=== PATIENT | male | born 1975 | race Caucasian/White ===

== ENCOUNTER 2017-11-11 09:35 | Emergency (ER) | payer OTHER, SELFPAY ==
[2017-11-11 09:37] VITALS: BP 159/93; PULSE 86; RESP 20; TEMP 36.1; O2SAT 99; BMI 25.4
--- NOTE | 2017-11-11 09:38 | CT_ITS ---
CT abdomen pelvis wo con CLINICAL INDICATION: Right flank pain ITS.REASON: R flank pain ORDERING PHYSICIAN: Alexandr Brandon MD PATIENT AGE: 41 years COMPARISON: None TECHNIQUE: Axial images obtained with sagittal and coronal reformats. PROCEDURE: Oral Contrast: None IV Contrast: None . FINDINGS: No acute finding in the lung bases. Mild hepatic steatosis. There is a 7 mm isodensity left hepatic lobe and may represent a small cyst. An additional isodensity noted in the right hepatic lobe posteriorly at 6 mm and could represent a small cyst. No calcified gallstones. No biliary dilatation. The spleen, adrenal glands, and pancreas are unremarkable. There is a 4 mm stone in the mid right ureter causing mild right hydroureteronephrosis proximally. This stone is at the L3-L4 level. There is an additional nonobstructing punctate calculus in the upper pole the right kidney 3 mm and in the mid pole the right kidney 2 mm. Punctate left renal calculi are also present measuring up to 2 mm in the upper pole. As an exophytic 1 cm cyst projecting off the lower pole the left kidney. Unremarkable appendix. No intestinal obstruction or free air. No bladder calculi. No acute bony anomalies. IMPRESSION: 1. 4 mm obstructing right mid ureteral stone with mild right hydroureteronephrosis. 2. Bilateral nephrolithiasis. 3. Hepatic steatosis with probable hepatic cysts Lower thorax: No acute finding ABDOMEN: Liver: No masses or biliary dilatation. Gallbladder: Nondistended. No radio opaque stones. Pancreas: No masses or peripancreatic fluid collections. Spleen: Unremarkable. Adrenals: Unremarkable Kidneys/ureters: No masses. No renal calculi. No hydronephrosis. No perinephric fluid collections. No ureteral dilatation or obvious ureteral calculi. Stomach bowel: Nondistended. No obvious mass or thickening. Appendix: No evidence of appendicitis. PELVIS: Reproductive: Unremarkable Bladder: Nondistended. No obvious stones or masses. ABDOMEN & PELVIS: Peritoneum: No abnormal fluid collections. No obvious inflammatory changes. No free air. Lymph nodes: No enlarged lymph nodes apparent. Vasculature: No evidence of abdominal aortic aneurysm. No retroperitoneal hemorrhage evident. Bones: No acute fracture IMPRESSION: Negative, no acute intra-abdominal or pelvic pathology apparent
--- NOTE | 2017-11-11 09:39 | HMH.EDGENADL ---
ED Disposition Clinical Impression: Ureteral calculus Disposition: Home, Self-Care Condition on Discharge: Good Instructions: DI for Kidney Stones Additional Instructions: Additional instructions for KIDNEY STONE (URETERAL CALCULUS): See your physician as soon as possible for further evaluation. Drink plenty of fluids. Strain your urine and save any stones you catch. Return immediately if you develop a fever or have uncontrollable vomiting or uncontrollable pain. What is known about DIET and KIDNEY STONES: Most kidney stones contain calcium oxalate. The logical assumption would be that you should avoid calcium and oxalate in your diet. Contrary to what you would think, this is not necessarily the case. What is actually recommended for kidney stone prevention is a diet that contains MODERATELY HIGH AMOUNTS OF CALCIUM and is LOW IN SODIUM with PLENTY OF FLUIDS. Avoiding oxalate containing foods is recommended by some experts, but is controversial. Following the DASH (Dietary Approaches to Stop Hypertention) has been shown to significantly reduce the incidence of kidney stones. The DASH diet encourages you to reduce the sodium in your diet and eat a variety of foods rich in nutrients that help lower blood pressure, such as potassium, calcium and magnesium. Recommendations: Fluids: It is widely agreed upon that you need to drink plenty of fluids. A minimum would be 8-10 glasses (8 oz each) of fluid per day. Some experts recommend as much as 14-15 glasses a day. Sodium: The way to lower calcium in your urine is to lower your sodium intake. Try not to get more than 1500 mg a day. Calcium: Dietary calcium prevents absorption of oxalate. Make sure you get about 1000 to 1200 mg a day. You can get enough calcium from dairy products without taking supplements. Do not overdo it. Calcium should be ingested with meals, not in between meals. You need to get your calcium at mealtime to decrease the absorption of oxalate from other foods. Oxalate: Although some experts recommend avoiding oxalate in your diet, there have been no studies that prove this works. Eating more calcium will reduce oxalate absorption, and is probably all that is needed to reduce oxalate in your urine. Oxalate containing foods are generally good for you in all other respects - leafy greens, nuts, etc... So avoiding them unnecessarily might not be the best thing for your health. If you want to do something to avoid oxalate, avoid spinach and rhubarb - those are extremely high in oxalate (or at least eat a high calcium meal with these). ALSO: If you retrieve your stone by straining your urine, take it to your physician for stone analysis, which can help tailor your dietary recommendations. For further reading, check out the [facility] web page about the kidney stone diet: [email or web address] Additional instructions for CONTROLLED SUBSTANCES: You have been prescribed a medication that is a controlled substance. Controlled substances include pain medications known as opiates and sedative nerve medications known as benzodiazepines. Some common opiates include: Codeine (such as Tylenol #3) Hydrocodone (Vicodin, Lortab, Lorcet, [place]) Oxycodone (Percocet, Percodan, Oxycodone, Oxy IR) Some common benzodiazepines include: Diazepam (Valium) Lorazepam (Ativan) Alprazolam (Xanax) Clonazepam (Klonopin) Oxazepam (Serax) All of these controlled substances are highly addictive and frequently abused. Misuse can and frequently does lead to addiction as well as overdose and . Medication should be stored in a locked cabinet or other secure storage unit. Do not store the medication in a motor vehicle. Short term supplies, 3 days or less, are prescribed because of the highly addictive nature of the medication. Any of the controlled substance medication NOT taken should be disposed of properly and NOT SA
--- NOTE | 2017-11-11 09:42 | ED_ITS ---
ED Disposition Clinical Impression: Ureteral calculus Disposition: Home, Self-Care Condition on Discharge: Good Instructions: DI for Kidney Stones Additional Instructions: Additional instructions for KIDNEY STONE (URETERAL CALCULUS): See your physician as soon as possible for further evaluation. Drink plenty of fluids. Strain your urine and save any stones you catch. Return immediately if you develop a fever or have uncontrollable vomiting or uncontrollable pain. What is known about DIET and KIDNEY STONES: Most kidney stones contain calcium oxalate. The logical assumption would be that you should avoid calcium and oxalate in your diet. Contrary to what you would think, this is not necessarily the case. What is actually recommended for kidney stone prevention is a diet that contains MODERATELY HIGH AMOUNTS OF CALCIUM and is LOW IN SODIUM with PLENTY OF FLUIDS. Avoiding oxalate containing foods is recommended by some experts, but is controversial. Following the DASH (Dietary Approaches to Stop Hypertention) has been shown to significantly reduce the incidence of kidney stones. The DASH diet encourages you to reduce the sodium in your diet and eat a variety of foods rich in nutrients that help lower blood pressure, such as potassium, calcium and magnesium. Recommendations: Fluids: It is widely agreed upon that you need to drink plenty of fluids. A minimum would be 8-10 glasses (8 oz each) of fluid per day. Some experts recommend as much as 14-15 glasses a day. Sodium: The way to lower calcium in your urine is to lower your sodium intake. Try not to get more than 1500 mg a day. Calcium: Dietary calcium prevents absorption of oxalate. Make sure you get about 1000 to 1200 mg a day. You can get enough calcium from dairy products without taking supplements. Do not overdo it. Calcium should be ingested with meals, not in between meals. You need to get your calcium at mealtime to decrease the absorption of oxalate from other foods. Oxalate: Although some experts recommend avoiding oxalate in your diet, there have been no studies that prove this works. Eating more calcium will reduce oxalate absorption, and is probably all that is needed to reduce oxalate in your urine. Oxalate containing foods are generally good for you in all other respects - leafy greens, nuts, etc... So avoiding them unnecessarily might not be the best thing for your health. If you want to do something to avoid oxalate , avoid spinach and rhubarb - those are extremely high in oxalate (or at least eat a high calcium meal with these). ALSO: If you retrieve your stone by straining your urine, take it to your physician for stone analysis, which can help tailor your dietary recommendations. For further reading, check out the [facility] web page about the kidney stone diet: [email or web address]/ Additional instructions for CONTROLLED SUBSTANCES: You have been prescribed a medication that is a controlled substance. Controlled substances include pain medications known as opiates and sedative nerve medications known as benzodiazepines. Some common opiates include: Codeine (such as Tylenol #3) Hydrocodone (Vicodin, Lortab, Lorcet, [place]) Oxycodone (Percocet, Percodan, Oxycodone, Oxy IR) Some common benzodiazepines include: Diazepam (Valium) Lorazepam (Ativan) Alprazolam (Xanax) Clonazepam (Klonopin) Oxazepam (Serax) All of these controlled substances are highly addictive and frequently abused. Misuse can and frequently does lead to addiction as well as over
[2017-11-11 09:55] LABS: Basophils % 0.3 % (0.1-2.0); Eosinophils # 0.1 K/mm3 (0.0-0.4); Hematocrit 42.9 % (42.0-52.0); Hemoglobin 14.4 g/dL (14.1-18.0); Lymphocytes # 4.3 K/mm3 (0.7-4.5); Lymphocytes % 46.1 K/mm3 (10-50); Mean Corpuscular HGB Conc 33.7 g/dL (31.8-35.4); Mean Corpuscular Hemoglobin 30.2 pg (27.0-31.2); Mean Corpuscular Volume 89.8 fl (80-94); Mean Platelet Volume 7.6 fl (7.4-10.4); Monocytes # 0.6 K/mm3 (0.1-1.0); Monocytes % 6.2 % (1.7-9.3); Neutrophils # 4.4 K/mm3 (1.8-7.8); Neutrophils % 46.3 % (37.0-80.0); Platelet Count 356 K/mm3 (142-424); Red Blood Count 4.77 M/mm3 (4.60-6.20); Red Cell Distribution Width 12.1 % (11.5-17.5); White Blood Count 9.4 K/mm3 (4.8-10.8)
[2017-11-11 10:11] LABS: Alanine Aminotransferase 52 U/L (12-78); Albumin Level 3.9 gm/dL (3.4-5.0); Albumin/Globulin Ratio 1.1 (1.1-1.8); Alkaline Phosphatase 59 U/L (46-116); Aspartate Amino Transferase 25 U/L (15-37); Bilirubin,Total 0.5 mg/dL (0.2-1.0); Blood Urea Nitrogen 15 mg/dL (7-18); Calcium 8.7 mg/dL (8.5-10.1); Carbon Dioxide 25 mmol/L (21.0-32.0); Chloride 106 mmol/L (98-107); Creatinine Clearance Estimated 98 mL/min (0-300); Creatinine,Serum 1.14 mg/dL (0.70-1.30); Estimated Glomerular Filt Rate 71 ml/min (>60); GFR (African American) 86 ML/MIN (>60); Globulin 3.4 gm/dl (1.3-3.2); Glucose 119 mg/dL (74-106); Sodium 144 mmol/L (136-145); Total Protein,Serum 7.3 gm/dL (6.4-8.2)
[2017-11-11 10:54] LABS: Microscopic, Urine URINE MICROSCOPIC (MICROSCOPIC)
[2017-11-11 11:04] LABS: Appearance,Urine CLEAR (Clear); Bilirubin,Urine Negative (Negative); Blood, Urine 1+ (Negative); Color,Urine YELLOW (Yellow); Glucose,Urine (UA) Negative (Negative); Ketones,Urine Negative (Negative); Leukocyte Esterase,Urine Negative (Negative); Nitrate,Urine Negative (Negative); PH,Urine 6.5 (5.0-8.5); Protein,Urine Negative (Negative); Specific Gravity, Urine 1.025 (1.005-1.030); Urobilinogen,Urine 0.2 EU/dl (0.2)
[2017-11-11 11:27] LABS: Bacteria,Urine Trace /lpf
[2017-11-11 11:28] LABS: RBC,Urine Occasional #/hpf (0-3); Squamous Epithelial Cell,Urine Occasional #/hpf (0-5)
[2017-11-11 11:33] VITALS: BP 135/88; PULSE 63; O2SAT 97
== END 2017-11-11 11:37 | disposition home or self-care (01) ==
PROVIDERS: Emergency Provider Emergency Medicine; PCP Family Medicine
DX: N20.1 Calculus of ureter (principal); Z87.442 Personal history of urinary calculi; Z79.899 Other long term (current) drug therapy
CPT/HCPCS: 74176; 80053; 81001; 85025; 96365; 96366; 96375; 99284; J2405

== ENCOUNTER → 2019-05-03 17:06 | Outpatient (CLI) | payer OTHER, SELFPAY ==
[2019-05-03 17:11] LABS: Adenovirus F 40/41, stool Not Detected (NotDetected); Astrovirus Not Detected (NotDetected); Clostridium Difficile A/B, PCR Not Detected (NotDetected); Cryptosporidium Not Detected (NotDetected); Cyclospora Cayetanesis Not Detected (NotDetected); Entamoeba histolytica Not Detected (NotDetected); Enteroaggregative E coli Not Detected (NotDetected); Enteropathogenic E coli Not Detected (NotDetected); Enterotoxigenic E coli Not Detected (NotDetected); Giardia lamblia Not Detected (NotDetected); Norovirus Not Detected (NotDetected); Plesimonas Shigalloides, PCR Not Detected (NotDetected); Rotavirus A Not Detected (NotDetected); Salmonella, PCR Not Detected (NotDetected); Sapovirus Not Detected (NotDetected); Shiga-like toxin E coli Not Detected (NotDetected); Shigella Enterovasive E coli Not Detected (NotDetected); Vibrio Cholerae Not Detected (NotDetected); Vibrio, PCR Not Detected (NotDetected); Yersinia Entercolitica, PCR Not Detected (NotDetected)
[2019-05-03 22:41] LABS: Campylobacter Detected (NotDetected)
== END ==
PROVIDERS: Visit Provider Family Medicine
DX: K52.9 Noninfective gastroenteritis and colitis, unspecified (principal)
CPT/HCPCS: 87507

== ENCOUNTER → 2021-10-28 10:33 | Outpatient (CLI) | payer BC, SELFPAY ==
[2021-10-28 10:57] LABS: Adenovirus,PCR Not Detected (NotDetected); Bordetella Pertussis Not Detected (NotDetected); Chlamydophila Pneumoniae, PCR Not Detected (NotDetected); Coronavirus 19, PCR Not Detected (NotDetected); Coronavirus 229E Not Detected (NotDetected); Coronavirus NL63 Not Detected (NotDetected); Coronavirus OC43 Not Detected (NotDetected); Coronovirus HKU1,PCR Not Detected (NotDetected); Human Metapneumovirus Not Detected (NotDetected); Influenza A, PCR Not Detected (NotDetected); Influenza AH1, 2009 Not Detected (NotDetected); Influenza AH1, PCR Not Detected (NotDetected); Influenza AH3,PCR Not Detected (NotDetected); Influenza B, PCR Not Detected (NotDetected); Mycoplasma Pneumoniae, PCR Not Detected (NotDetected); Parainfluenza 1, PCR Not Detected (NotDetected); Parainfluenza 2, PCR Not Detected (NotDetected); Parainfluenza 3, PCR Not Detected (NotDetected); Parainfluenza 4, PCR Not Detected (NotDetected); Respiratory Syncytial Virus Not Detected (NotDetected); Rhinovirus/Enterovirus Not Detected (NotDetected)
[2021-10-28 11:03] LABS: Basophils % 0.7 % (0.1-2.0); Eosinophils # 0.1 K/mm3 (0.0-0.4); Hematocrit 47.6 % (42.0-52.0); Hemoglobin 15.7 g/dL (14.1-18.0); Lymphocytes # 1.6 K/mm3 (0.7-4.5); Lymphocytes % 25.6 % (10-50); Mean Corpuscular Hemoglobin 31.7 pg (27.0-31.2); Mean Corpuscular Volume 95.9 fl (80-94); Mean Platelet Volume 8.3 fl (7.4-10.4); Monocytes # 0.4 K/mm3 (0.1-1.0); Monocytes % 6.4 % (1.7-9.3); Neutrophils # 4.3 K/mm3 (1.8-7.8); Neutrophils % 66.5 % (37.0-80.0); Platelet Count 295 K/mm3 (142-424); Red Blood Count 4.96 M/mm3 (4.60-6.20); Red Cell Distribution Width 12.3 % (11.5-17.5); White Blood Count 6.4 K/mm3 (4.8-10.8)
[2021-10-28 11:17] LABS: Strep Scrn Group A (Rapid) Negative (Negative)
== END ==
PROVIDERS: PCP Nurse Practitioner Family; Visit Provider Nurse Practitioner Family
DX: Z20.822 Contact with and (suspected) exposure to COVID-19 (principal); J02.9 Acute pharyngitis, unspecified
CPT/HCPCS: 36415; 85025; 87430; 87581; 87632; 87798; C9803; U0003; U0005

== ENCOUNTER → 2022-01-16 07:11 | Outpatient (CLI) | payer BC, SELFPAY | PROVIDERS: Visit Provider Family Medicine | DX: Z11.52 Encounter for screening for COVID-19 (principal) | CPT/HCPCS: C9803; U0003; U0005 ==

== ENCOUNTER 2022-05-23 13:22 | Emergency (ER) | payer OTHER, BC, SELFPAY ==
[2022-05-23 13:29] VITALS: BP 127/84; PULSE 80; RESP 18; TEMP 36.6; O2SAT 98; BMI 25.4
[2022-05-23 13:40] VITALS: BP 127/84; PULSE 80; RESP 18; TEMP 36.6; O2SAT 98; BMI 25.3
--- NOTE | 2022-05-23 14:52 | HMH.EDUTC ---
[facility] [place]: Laceration Disposition: Home, Self-Care Condition on Discharge: Good Instructions: Laceration Repair, DI for Laceration Repair -- Simple Additional Instructions: Suture instructions: You have required stitches today. Please read the following instructions so you know how to care for them: 1. Keep wound area dry for the first 24 hours. 2 May clean gently with mild soap and water, after 48 hours to prevent crusting over suture knots. 3. You may shower if your provider gives permission but do not take a bath until the skin is healed.. 4. Never leave a wet dressing or Band-Aid on your stitches as this allows bacteria to reach the area and may cause infection. Band-aids can cause the wound to sweat and not recommended to wear for long periods of time Watch for signs of infection: Increasing redness, tenderness or warmth around the suture site Unusual swelling around the site Appearance of pus around each suture or any red streaks Fever If you develop any of the above signs or symptoms of infection, Follow up with Family Physician immediately 5. Suture removal in _10-14___days 6. Return to [facility] or follow up with family doctor for removal. This can be done by any medical provider during regular hours on Thursday through Thursday, by appointment. Referrals: Martinez Evans MD [Primary Care Provider] - As needed Time of Disposition: 15:01 Medical Decision Making - Carlos Inquiry Pt receiving controlled substance: No Carlos was queried for this patient: No Vital Signs: 05/23/22 13:29 05/23/22 13:40 Temperature 97.9 F 97.9 F Temperature Source Oral Oral Pulse Rate [Radial] 80 80 Respiratory Rate 18 18 Blood Pressure [Right Arm] 127/84 127/84 Blood Pressure Mean [Right Arm] 98 98 Blood Pressure Source [Right Arm] Automatic Cuff Blood Pressure Position [Right Arm] Sitting Sitting 02 Sat by Pulse Oximetry 98 98 Oxygen Delivery Method Room Air Room Air Orders (Tests/Meds): ED MEDICATIONS Discontinued Medications Generic Name Dose Route Start Last Admin Trade Name Freq PRN Reason Stop Dose Admin Tetanus/Reduced Diphtheria/Acell Pertussis 0.5 ml 05/23/22 13:41 05/23/22 14:00 Tet/Diphth/Pert-Adult 0.5ml Syringe IM 05/23/22 13:42 0.5 ml .ONCE ONE Administration [facility] [place] - General Stated complaint: Injured thumb Time Seen by Provider: 05/23/22 14:52 Mode of Arrival: Ambulatory Source of Information: Patient Limitations: No Limitations Description of Symptoms (Recalled from Triage Doc. by RN): PATIENT C/O LACERATION TO LEFT THUMB AFTER CUTTING IT ON A PIECE OF METAL ON ICE MACHINE AT WORK TODAY. PATIENT STATES HE NEEDS A TDAP HEENT Symptoms (Recalled from RN notes): No Resp Symptoms (Recalled from RN notes): No Skin Symptoms (Recalled from RN notes): Yes MS Symptoms (Recalled from RN notes): No Functional Status (Recalled from RN notes): WNL - History of Present Illness Provider Complaint: Patient states that he was working on ice machine at work when his hand slipped and he cut his left thumb on the edge of sharp metal on the machine States that he immediately applied pressure due to taking alleeve for the last couple of days for his back pain able to move finger easily - Related Data Home Medications Medication Instructions Recorded Confirmed Gabapentin [Gabapentin 300mg Cap] 300 mg PO DAILY 11/11/17 11/11/17 Previous Rx's Medication Instructions Recorded Ondansetron [Zofran 4mg ODT] 4 mg PO TIDP PRN #10 tab.rapdis 11/11/17 Oxycodone HCl/Acetaminophen 1 tab PO Q6HP PRN #10 tab 11/11/17 [Percocet 5/325mg tablet] Tamsulosin HCl [Flomax 0.4mg 0.4 mg PO HS #10 cap.er.24h 11/11/17 capsule] Allergies Allergy/AdvReac Type Severity Reaction Status Date / Time No Known Allergies Allergy Verified 11/11/17 09:43 - Worker's Comp Is this a Worker's Comp case?: No [facility] History - Hepatitis A Screen Attestation statement:
[2022-05-23 15:01] VITALS: BP 127/84; PULSE 80; RESP 18; TEMP 36.6; O2SAT 98
== END 2022-05-23 15:13 | disposition home or self-care (01) ==
PROVIDERS: Emergency Provider Nurse Practitioner; PCP Family Medicine
DX: S61.012A Laceration without foreign body of left thumb without damage to nail, initial encounter (principal); Y28.9XXA Contact with unspecified sharp object, undetermined intent, initial encounter; Y93.89 Activity, other specified; Y99.0 Civilian activity done for income or pay; Z23 Encounter for immunization
CPT/HCPCS: 12001; 90471; 90715; 99213; G0463

== ENCOUNTER 2022-06-05 09:51 | Emergency (ER) | payer OTHER, BC, SELFPAY ==
[2022-06-05 10:09] VITALS: BP 113/69; PULSE 103; RESP 16; TEMP 36.8; O2SAT 96; BMI 25.0
[2022-06-05 10:11] VITALS: BP 113/69; PULSE 103; RESP 16; TEMP 36.8
== END 2022-06-05 10:12 | disposition home or self-care (01) ==
PROVIDERS: Emergency Provider Nurse Practitioner Family; PCP Family Medicine
DX: Z48.02 Encounter for removal of sutures (principal)
CPT/HCPCS: 99211; G0463

== ENCOUNTER 2022-08-28 19:26 | Emergency (ER) | payer BC, SELFPAY ==
[2022-08-28 19:44] VITALS: BP 159/109; PULSE 71; RESP 18; TEMP 36.5; O2SAT 97; BMI 24.8
--- NOTE | 2022-08-28 19:49 | XR_ITS ---
PROCEDURE INFORMATION: Exam: XR Left Hand Exam date and time: 08/28/2022 7:51 PM Age: 46 years old Clinical indication: Pain; Finger(s); Left; Additional info: smashed thumb TECHNIQUE: Imaging protocol: Radiologic exam of the Left hand. Views: 3 or more views. COMPARISON: No relevant prior studies available. FINDINGS: Bones/joints: Potential subtle cortical irregularity of the distal medial aspect of the proximal phalanx of the 1st ray. No dislocation. Soft tissues: Normal. IMPRESSION: Potential nondisplaced fracture of the distal medial aspect of the proximal phalanx of the 1st ray. Correlation with point tenderness is recommended.
--- NOTE | 2022-08-28 21:50 | HMH.EDUPEXT ---
Discharge Plan Disposition Chief Complaint: Extremity Injury, Upper Prescriptions Prescriptions: No Action esomeprazole magnesium [Nexium 24HR] 20 mg Capsule,Delayed Release(Dr/Ec) 20 mg PO DAILY Referrals Follow up/Referrals: Martinez Evans MD [Primary Care Provider] - See instructions Clinical Impressions Clinical Impression: Fracture of thumb Instructions Patient Instructions: DI for Avulsion Fracture Discharge ED Provider: Giovanni Damon Upper Extremity HPI General Chief Complaint: Extremity Injury, Upper Stated Complaint: 08/28@1600@HOME MASHED l THUMB Time Seen by Provider: 08/28/22 21:50 Mode of Arrival: Ambulatory Source of Information: Patient Limitations: No Limitations Description of Symptoms (Recalled from ER Triage Doc. by RN): 46 yo male presents to ED with CC of LEFT thumb injury. 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 Recent laceration to the same thumb with complete healing noted. Slight bruising noted to outer medial side of thumb, edema present, and rates pain 4/10 after taking 3 aleve tablets . PMH: PPI for GERD and a supplemental daily mens vitamin. NKA.No signigficant hx . Full ROM of right hand, denies pain radiation. History of Present Illness HPI narrative: acute injury to lt thumb as noted above with swelling and pain MD complaint: injury to: left and hand Onset (ago): hour(s) Other Extremity Injury: Left: hand Other injuries: none Handedness: right Place: outdoors Severity: moderate Context: direct blow Associated symptoms: denies other symptoms Treatments prior to arrival: cold therapy Related Data Home Medications Medication Instructions Recorded Confirmed esomeprazole magnesium 20 mg 20 mg PO DAILY GERD 08/28/22 08/28/22 capsule,delayed release (Nexium 24HR) Allergies Allergy/AdvReac Type Severity Reaction Status Date / Time No Known Allergies Allergy Verified 11/11/17 09:[address] [facility] Social History Smoking Status: Never smoker alcohol intake: never current occupational status: employed Travel in the last 8 weeks: None ROS Obtained: Yes All systems reviewed & no additional complaints except as documented Physical Exam General General appearance: alert Head Head exam: normocephalic Eye Eye exam: Present PERRL and EOMI ENT ENT exam: Present mucous membranes moist Neck Neck exam: Present full ROM Respiratory Respiratory exam: Present normal lung sounds bilaterally Cardiovascular Cardiovascular exam: Present regular rate Expanded Upper Extremity Exam Left: Hand exam: Present tenderness and swelling; Absent full ROM, nail avulsion or subungual hematoma Neuromotor exam: Normal wrist extension Vascular exam: Normal radial pulse Neurological Exam Neurological exam: Present alert, oriented X3 and CN II-XII intact Skin Skin exam: Present intact Medical Decision Making Medical Records Medical records reviewed: Yes I reviewed the patient's medical records. Carlos Inquiry Pt receiving controlled substance: No Vital Signs: 08/28/22 19:44 Temperature 97.7 F Temperature Source Temporal Artery Scan Pulse Rate [Right Brachial] 71 Respiratory Rate 18 Blood Pressure [Right Arm] 159/109 H Blood Pressure Mean [Right Arm] 125 Blood Pressure Source [Right Arm] Automatic Cuff Blood Pressure Position [Right Arm] Standing 02 Sat by Pulse Oximetry 97 Oxygen Delivery Method Room Air Lab Data Lab results reviewed: Yes I reviewed the patient's lab results. Orders (Tests/Meds): ORDERS Category Date Time Status XR hand LT min 3V Stat Exams 08/28/22 19:49 Completed Radiology Data #1: Image(s): Hand Image Reviewed: Yes I have reviewed radiologist's interpretation Preliminary Findings: Abnormal Medical Decision Narrative: has fx on xray and clinical exam Critical Care Time Critical Care Time Critical Care Time: No A
[2022-08-28 22:04] VITALS: BP 160/90; PULSE 78; RESP 18; TEMP 36.6; O2SAT 99
== END 2022-08-28 22:08 | disposition home or self-care (01) ==
LOC: ER 19:44
PROVIDERS: Emergency Provider Emergency Medicine; PCP Family Medicine
DX: S67.02XA Crushing injury of left thumb, initial encounter (principal); K21.9 Gastro-esophageal reflux disease without esophagitis; Z79.899 Other long term (current) drug therapy; W23.0XXA Caught, crushed, jammed, or pinched between moving objects, initial encounter; Y93.39 Activity, other involving climbing, rappelling and jumping off
CPT/HCPCS: 73130; 99283

== ENCOUNTER 2023-01-23 09:38 | Emergency (ER) | payer OTHER, BC, SELFPAY ==
[2023-01-23 09:45] VITALS: BP 144/96; PULSE 70; RESP 21; TEMP 36.7; O2SAT 99; BMI 25.2
--- NOTE | 2023-01-23 10:00 | XR_ITS ---
FINAL REPORT CLINICAL HISTORY: FALL. SHOULDER PAIN FINDINGS: Right shoulder Three views were obtained. There is no acute fracture or dislocation. There is significant widening of the AC joint measuring 2.2 cm. No soft tissue abnormality is identified. IMPRESSION: Significant widening of the AC joint. Reviewed, Interpreted and Dictated by Alfredo Tamayo MD Transcribed by Lillian Carroll Authenticated and [facility]
--- NOTE | 2023-01-23 10:15 | EXP.UTC ---
Discharge Plan Disposition Patient Disposition: Home, Self-Care Condition: Good Prescriptions Prescriptions: New ibuprofen 800 mg tablet 800 mg PO TID PRN (Reason: pain) Qty: 30 0RF No Action esomeprazole magnesium [Nexium 24HR] 20 mg Capsule,Delayed Release(Dr/Ec) 20 mg PO DAILY Referrals Follow up/Referrals: Martinez Eavns MD [Primary Care Provider] - See instructions Valeriano Elam JR, MD [Physician] - See instructions (Pt to follow up with Dr. Elam for significant widening of the AC joint following a work injury.) Activity Restrictions/Add. Instructions Additional Instructions/Restrictions: Pt to wear sling to prevent over movement of right shoulder. Ice shoulder 20 minutes at a time 3 times a day. Take Ibuprofen as directed Clinical Impressions Clinical Impression: Acromioclavicular joint separation Qualifiers: Encounter type: initial encounter Laterality: right Qualified Code(s): S43.101A - Unspecified dislocation of right acromioclavicular joint, initial encounter Instructions Patient Instructions: DI for Shoulder Pain, DI for Joint Pain Discharge ED Provider: Yesica León [facility] General Stated complaint: [id number] right shoulder pain Mode of Arrival: Ambulatory Source of Information: Patient Limitations: No Limitations Time Seen by Provider: 01/23/23 10:05 Description of Symptoms (Recalled from Triage Doc. 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 He caught himself with and overhead beam and it pulled on his right shoulder. He states that he can't lift his arm overhead without pain. He states that his job required that he come in and get checked out as it happened at work. Pt states that he previously had surgery on the same shoulder. Related Data Home Medications Medication Instructions Recorded Confirmed esomeprazole magnesium 20 mg 20 mg PO DAILY GERD 08/28/22 01/23/23 capsule,delayed release (Nexium 24HR) Previous Rx's Medication Instructions Recorded ibuprofen 800 mg tablet 800 mg PO TID PRN pain #30 tabs 01/23/23 Allergies Allergy/AdvReac Type Severity Reaction Status Date / Time No Known Allergies Allergy Verified 11/11/17 09:43 Worker's Comp Is this a Worker's Comp case?: No [facility] Disclaimer: The information contained in this section may have been updated after the patient was seen, as this information can be updated by other users. Social History (Updated 08/28/22 @ 22:00 by Giovanni Damon MD) Smoking Status: Never smoker alcohol intake: never current occupational status: employed Travel in the last 8 weeks: None ROS Obtained: Yes All systems reviewed & no additional complaints except as documented Constitutional Constitutional: Reports system reviewed and no additional complaints, except as documented Eyes Eyes: Reports system reviewed and no additional complaints, except as documented ENT Ears, Nose, Mouth, and Throat: Reports system reviewed and no additional complaints, except as documented Cardiovascular Cardiovascular: Reports system reviewed and no additional complaints, except as documented Respiratory Respiratory: Reports system reviewed and no additional complaints, except as documented Gastrointestinal Gastrointestingal: Reports system reviewed and no additional complaints, except as documented Genitourinary Male Genitourinary: Reports system reviewed and no additional complaints, except as documented Musculoskeletal Musculoskeletal: Reports as per HPI, Reports limited range of motion, R
[2023-01-23 11:00] VITALS: BP 144/96; PULSE 70; RESP 21; TEMP 36.7; O2SAT 99
== END 2023-01-23 11:40 | disposition home or self-care (01) ==
PROVIDERS: Emergency Provider Nurse Practitioner Family; PCP Family Medicine
DX: S43.101A Unspecified dislocation of right acromioclavicular joint, initial encounter (principal); W01.10XA Fall on same level from slipping, tripping and stumbling with subsequent striking against unspecified object, initial encounter
CPT/HCPCS: 73030; 99212; 99214; G0463